=== PATIENT | female | born 1950 | race Hispanic/Latino ===

== ENCOUNTER 2022-01-10 19:46 | Emergency (ER) | payer OTHER, BC ==
--- OUTSIDE RECORDS SUMMARY | 2022-01-10 19:53 | XMS REPORT | Continuity of Care Document ---
:1950 Author Organization [facility] t Address [facility] Aydin Ramirez. [address] [place] [address] Care Team Providers Name Role Phone [phone] Primary Care Physician Unavailable SYSTEM, NOT IN Attending Clinician Unavailable JAREN Attending Clinician Unavailable ROSEMARIE Attending Clinician Unavailable Heath GRANT Attending Clinician Unavailable PROTER Attending Clinician Unavailable MONIKA Attending Clinician Unavailable JOSE Attending Clinician Unavailable XENA Attending Clinician Unavailable BERKLEY Attending Clinician Unavailable ANGUS Attending Clinician Unavailable Preston_Marielena Attending Clinician Unavailable JAY Attending Clinician Unavailable Ave ARTHUR Attending Clinician Unavailable RADIOLOGY Attending Clinician Unavailable Radiology Attending Clinician Unavailable Doctor Unassigned, Name Attending Clinician Unavailable Raju_P Admitting Clinician Unavailable SELBST Admitting Clinician Unavailable Payers Payer Name Policy Type Policy Number Effective Date Expiration Date Heath nobles MEDICARE PART A [id number] 2014 [place] B 00:00:00 [place] [id number] 2015 00:00:00 [place]: [id number] 2014 [employer] 00:00:00 BCBS-ID: KAREN [id number] 2015 [facility] 00:00:00 [facility] [employer] PRO[employer] MEDICARE PART A [id number] 2014 \\T\\ B 00:00:00 BCBS FED [place] [id number] 2004 00:00:00 Problems This patient has no known problems. Allergies, Adverse Reactions, Alerts Allergy Allergy Status Severity Reaction(s) Onset Inactive Treating Comm ents Source Name Type Date Date Clinician Denise Brunson Active Shortness of 2018-0 Because Univers ne ty to Breath 7-05 of IVP ity of Analogue adverse 00:00: dye [place] s reaction 00 ([place] Medic al s nt in Branch drug). AMIODARO Drug Active SOB 0 Univers NE Class 7-05 ity of ANALOGUE 00:00: [place] S 00 Medical Branch Tetanus Propensi Active Rash 0 Univers Vaccines ty to 2-19 ity of And adverse 00:00: [place] Toxoid reaction 00 Medical s Branch Umeclidi Propensi Active Swelling 20180 Tongue Univ ers nium ty to 2-19 swelling ity of adverse 00:00: [place] reaction 00 Medical s Branch UMECLIDI DRUG Active Swelling 0 Univer s NIUM INGREDI 2-19 ity of 00:00: [place] 00 Medical Branch TETANUS Drug Active Low Rash 0 Univers VACCINES Class 2-19 ity of AND 00:00: [place] TOXOID 00 Medical Branch Shellfis Propensi Active Rash 0 Univer s h ty to 9-30 ity of Derived adverse 00:00: [place] reaction 00 Medical s Branch Sulfur Propensi Active Rash 0 Univers ty to 9-30 ity of adverse 00:00: [place] reaction 00 Medical s Branch [place] [address] Univers al ty to Breath 9-30 ity of Sodium adverse 00:00: [place] reaction 00 Medical s Branch Albutero Propensi Active Palpitations 0 Univers l ty to 9-30 ity of adverse 00:00: [place] reaction 00 Medical s Branch Iodinate Propensi Active Rash 0 Univer s d ty to 9-30 ity of Contrast adverse 00:00: [place] Media reaction 00 Medical s Branch OTHER DRUG Active High Rash 20170 Univers OMEGA-3S INGREDI 9-30 ity of 00:00: [place] 00 Medical Branch PROMETHA DRUG Active High Other-Cmnt 20170 Univ ers ZINE INGREDI 9-30 ity of 00:00: [place] 00 Medical Branch THIOPENT DRUG Active High SOB 20170 Univers AL INGREDI 9-30 ity of SODIUM 00:00: [place] 00 Medical Branch ALBUTERO DRUG Active Med Palpitations 0 Un sera L INGREDI 9-30 ity of 00:00: [place] 00 Medical Branch Iodinate Propensi Active Rash 20170 Univer s d ty to 9-30 ity of Contrast adverse 00:00: [place] - Oral reaction 00 Medical And Iv s Branch Dye IODINATE Drug Active Low Rash Univers D Class 9-30 ity of CONTRAST 00:00: [place] MEDIA 00 Medical Branch SHELLFIS DRUG Active Low Rash Univers H INGREDI 930 ity of DERIVED 00:00: [place] 00 Medical Branch SULFUR DRUG Active Low Rash Univers INGREDI 9 ity of 00:00: [place] 00 Medical Branch Other Propensi Active Other - See Other Uni vers [place]-3s ty to comments 07-06 reaction( ity of adverse 00:00: s): Other [place] reaction 00 (See Medical s Comments) Branch 1)"ALL ANTIHISTA MINE: NASAL, ORAL, IV increases my liver enzymes"2 ) Horse Serum: per allergy test: unknown reaction3 ) Old Tetanus Vaccine: unknown reaction1 )"ALL ANTIHISTA MINE: NASAL, ORAL, IV increases my liver enzymes"2 ) Horse Serum: per allergy test: unknown reaction3 ) Old Tetanus Vaccine: unknown reaction Prometha Propensi Active Other - See "IV U nivers zine ty to comments 07-06 phenergan ity o f adverse 00:00: causes [place] reaction 00 seizures" Medic al s Branch Simvasta Propensi Active Other - See U nivers tin ty to comments 04-12 ity of adverse 00:00: [place] reaction 00 Medical s Branch Strawber Propensi Active Rash Univer s ry ty to 04-12 ity of adverse 00:00: [place] reaction 00 Medical s Branch Antihist Propensi Active Rash Univer s amine 12 ty to 7 ity of Hour adverse 00:00: [place] reaction 00 Medical s Branch Celery Propensi Active Rash Univers ty to 7 ity of adverse 00:00: [place] reaction 00 Medical s Branch Diphenhy Propensi Active Other - See U nivers dramine ty to comments 04-12 ity of adverse 00:00: [place] reaction 00 Medical s Branch ANTIHIST DRUG Active Rash Univers AMINE 12 7- ity of HOUR 00:00: [place] 00 Medical Branch CELERY DRUG Active Rash Univers INGREDI 7 ity of 00:00: [place] 00 Medical Branch DIPHENHY DRUG Active Other-Cmnt Univ ers DRAMINE INGREDI 04-12 ity of 00:00: [place] [facility] SIMVASTA DRUG Active Other-Cmnt [facility] ers TIN INGREDI 04-12 ity of 00:00: [place] [address] Medical Branch STRAWBER DRUG Active Low Rash [facility] RY INGREDI 04-12 ity of 00:00: [place] [address] Medical Branch Amiodaro Allergy Active Rash [place] [facility] Iodine Allergy Active Moderate Rash [place] [facility] Phenerga Allergy Active Moderate Vomiting [place] to [facility] SULFA Allergy Active Moderate Rash [place] (SULFONA to da MIDE [facility] Medical ANTIBIOT e Group ICS) Albutero Allergy Active Mild to Bradycardia M [place] l to moderate da substanc Medical e Group Social History Social Habit Start Date Stop Date Quantity Comments Source Sex Assigned At [facility] Branch Alcohol intake 2018-05-21 2018-05-21 [facility] 00:00:00 00:00:00 [facility] Smoking Status Start Date Stop Date Source Never smoker [facility] Medications Ordered Filled Start Stop Current Ordering Indication Dosage Frequency Signature Comments Components Source Medication Medication Date Date Medication? Clinician (SIG) Name Name aspirin 325 Yes 325mg Take 325 U nivers mg tablet 8-16 mg by ity of 00:20: mouth. [address] budesonide Yes .5mg Inhale 0.5 U nivers 0.5 mg/2 mL 8-16 mg. ity of nebulizer 00:20: [address] ipratropium Yes 2.5mL Inhale 2.5 Univers 0.02 % 8-16 mL. ity of nebulizer 00:20: [address] ezetimibe Yes 10mg Take 10 mg Un sera 10 mg 8-16 by mouth. ity of tablet 00:20: [address] omeprazole Yes 20mg Take 20 mg U nivers 20 mg 8-16 by mouth. ity of capsule 00:20: [address] vitamin B-6 Yes 100mg Take 100 U nivers 100 mg 8-16 mg by ity of tablet 00:20: mouth. [address] aspirin 325 2018-0 Yes 325mg Take 325 U nivers mg tablet 8-16 mg by ity of 00:20: mouth. [address] budesonide 2018-0 Yes .5mg Inhale 0.5 U nivers 0.5 mg/2 mL 8-16 mg. ity of nebulizer 00:20: [address] ipratropium 2018-0 Yes 2.5mL Inhale 2.5 Univers 0.02 % 8-16 mL. ity of nebulizer 00:20: [address] ezetimibe 2017-0 Yes 10mg Take 10 mg Un sera 10 mg 8-16 by mouth. ity of tablet 00:20: [address] omeprazole 2017-0 Yes 20mg Take 20 mg U nivers 20 mg 8-16 by mouth. ity of capsule 00:20: [address] vitamin B-6 2017-0 Yes 100mg Take 100 U nivers 100 mg 8-16 mg by ity of tablet 00:20: mouth. [address] aspirin 325 2017-0 Yes 325mg Take 325 U nivers mg tablet 8-16 mg by ity of 00:20: mouth. [address] budesonide 2017-0 Yes .5mg Inhale 0.5 U nivers 0.5 mg/2 mL 8-16 mg. ity of nebulizer 00:20: [address] ipratropium 2017-0 Yes 2.5mL Inhale 2.5 Univers 0.02 % 8-16 mL. ity of nebulizer 00:20: [address] ezetimibe 2017-0 Yes 10mg Take 10 mg Un sera 10 mg 8-16 by mouth. ity of tablet 00:20: [address] omeprazole 2017-0 Yes 20mg Take 20 mg U nivers 20 mg 8-16 by mouth. ity of capsule 00:20: [address] vitamin B-6 2017-0 Yes 100mg Take 100 U nivers 100 mg 8-16 mg by ity of tablet 00:20: mouth. [address] cyclobenzap 2017-0 Yes [id number] 10mg Take 1 Univers rine 10 mg 8-15 [id number] tablet by it y of tablet 00:00: mouth 3 [place] [address] (three) [facility] daily as needed for Muscle Spasms. cyclobenzap Yes [id number] 10mg Take 1 Univers rine 10 mg 8-15 [id number] tablet by it y of tablet 00:00: mouth 3 [place] 00 (three) Medical times Branch daily as needed for Muscle Spasms. cyclobenzap Yes [id number] 10mg Take 1 Univers rine 10 mg 8-15 [id number] tablet by it y of tablet 00:00: mouth 3 [place] 00 (three) Medical times Branch daily as needed for Muscle Spasms. beclomethas 2016-10 Yes Univer s one 0-09 ity of dipropionat 00:00: [place] e (QVAR) 80 00 Medical mcg/actuati Branch on inhaler beclomethas 2016-10 Yes Univer s one 0-09 ity of dipropionat 00:00: [place] e (QVAR) 80 00 Medical mcg/actuati Branch on inhaler beclomethas 2016-10 Yes Univer s one 0-09 ity of dipropionat 00:00: [place] e (QVAR) 80 00 Medical mcg/actuati Branch on inhaler levalbutero Yes USE 1 VIAL Univers l 0.63 mg/3 9-27 EVERY 6 ity o f mL 00:00: HOURS [place] nebulizer 00 NEEDED FOR Medi jennie solution [facility] Branch THERAPY levalbutero Yes USE 1 VIAL Univers l 0.63 mg/3 9-27 EVERY 6 ity o f mL 00:00: HOURS [place] nebulizer 00 NEEDED FOR Medi jennie solution [facility] Branch THERAPY levalbutero Yes USE 1 VIAL Univers l 0.63 mg/3 9-27 EVERY 6 ity o f mL 00:00: HOURS [place] nebulizer 00 NEEDED FOR Medi jennie solution [facility] Branch THERAPY aspirin 325 aspirin 325 No 1 Q1D aspirin [place] mg tablet mg tablet 325 mg da Take 1 Take 1 tablet Medical tablet tablet Take 1 Group every day every day tablet by oral by oral every day route. route. by oral route. Atrovent Atrovent No 2.5mL Q6H Atrovent [place] 0.02 % 0.02 % 0.02 % da solution solution solution Med ical for for for Group inhalation inhalation inhalation Inhale 2.5 Inhale 2.5 Inhale 2.5 mL every 6 mL every 6 mL every 6 hours by hours by hours by inhalation inhalation inhalation route. route. route. Flonase Flonase No Flonase [facility] Lasix 20 mg Lasix 20 mg No 1 Q1D Lasix 20 [place] tablet Take tablet Take mg tablet da 1 tablet 1 tablet Take 1 Medic al every day every day tablet Ange up by oral by oral every day route. route. by oral route. levalbutero levalbutero No 2puff(s Q6H levalbuter [place] HFA 45 l HFA 45 ) ol HFA 45 da mcg/actuati mcg/actuati mcg/actuat Medical on aerosol on aerosol ion Ange up inhaler inhaler aerosol Inhale 2 Inhale 2 inhaler puffs every puffs every Inhale 2 6 hours by 6 hours by puffs inhalation inhalation every 6 route. route. hours by inhalation route. metoprolol metoprolol No metoprolol [place] solorio-hydrochl solorio-hydrochl solorio-hydroch da orothiaz orothiaz lorothiaz Me dical Group Protonix 40 Protonix 40 No 1 Q1D Protonix [place] mg mg 40 mg da tablet,pierre tablet,pierre tablet,del Medical yed release yed release ayed G roup Take 1 Take 1 release tablet tablet Take 1 every day every day tablet by oral by oral every day route. route. by oral route. Pulmicort Pulmicort No 2mL BID Pulmicort [place] 0.25 mg/2 0.25 mg/2 0.25 mg/2 da mL mL mL Medical suspension suspension suspension Group for for for nebulizatio nebulizatio nebulizati n Inhale 2 n Inhale 2 on Inhale mL twice a mL twice a 2 mL twice day by day by a day by nebulizatio nebulizatio nebulizati n route. n route. on route. Qvar Qvar No 2puff(s BID Qvar [place] RediHaler RediHaler ) RediHaler da 40 40 40 Medical mcg/actuati mcg/actuati mcg/actuat Group on HFA on HFA ion HFA breath breath breath activated activated activated aerosol aerosol aerosol Inhale 2 Inhale 2 Inhale 2 puffs twice puffs twice puffs a day by a day by twice a inhalation inhalation day by route. route. inhalation route. Zetia 10 mg Zetia 10 mg No 1 Q1D Zetia 10 [place] tablet Take tablet Take mg tablet da 1 tablet 1 tablet Take 1 Medic al every day every day tablet Ange up by oral by oral every day route. route. by oral route. Vital Signs Vital Name Observation Time Observation Value Comments Source BP Diastolic 2019-07-01 00:00:00 73 mm[Hg] [facility] Height 2019-07-01 00:00:00 64 [in_i] [facility] BMI (Body Mass 2019-07-01 00:00:00 29.5 kg/m2 [facility] Group BP Systolic 2019-07-01 00:00:00 138 mm[Hg] [facility] Body Weight 2019-07-01 00:00:00 171.6 [lb_av] [facility] Height 2018-10-15 00:00:00 64 [in_i] [facility] BMI (Body Mass 2018-10-15 00:00:00 30 kg/m2 [facility] Body Weight 2018-10-15 00:00:00 175 [lb_av] [facility] Procedures Procedure Date / Time Performing Clinician Source Performed XR ANKLE 3+ VW 2019-11-25 21:25:58 [facility] Branch ASSIGNMENT OF BENEFITS 2019-11-25 21:07:35 Doctor Unassigned, No [facility] Name [facility] Branch XR FOOT 3+ VW BILATERAL 2019-05-18 18:58:16 Nahid [facility] Breast [facility] Laminotomy Addl Lumbar [facility] Append[facility] Removal of Gallbladder [facility] Plan of Care Planned Activity Planned Date Details Comments Source Instructions [facility] Encounters Start End Encounter Admission Attending Care Care Encounter Source Date/Time Date/Time Type Type Clinicians Facility Department ID 2021-12-06 Outpatient JASON CHAN MDA [id number] 12:04:40 PROVIDER Duane doan 2021-11-09 Outpatient JASON GOMEZ [id number] 17:40:21 Andjocelyne doan 2021-12-08 2021-12-08 Outpatient LAURA EASTMAN MDA MDA [id number] 10:03:50 23:59:00 RAJ Hernández rso n 2021-12-08 2021-12-08 Outpatient JEANNE SANTORO MDA MDA [id number] 09:09:29 10:38:20 Duane o n 2021-12-08 2021-12-08 Outpatient LAURA GRANT, MDA MDA [id number] 08:45:00 10:02:00 RAJ Edgar rso n 2021-11-24 2021-11-24 Outpatient LAURA BUENROSTRO, MDA MDA [id number] MD 13:53:34 23:59:00 KATHERINE Zepeda o n 2021-11-23 2021-11-23 Outpatient LAURA BUENROSTRO, MDA MDA [id number] 13:08:50 23:59:00 KATHERINE trinidad n 2021-11-23 2021-11-23 Outpatient LAURA BUENROSTRO, MDA MDA [id number] 10:31:00 13:07:00 KATHERINE Zepeda o n 2021-11-23 2021-11-23 Outpatient LAURA FRANK, MDA MDA [id number] 09:33:12 10:09:29 NOHEMY Zepeda o n 2021-11-16 2021-11-16 Outpatient JOSE, MDA MDA [id number] 12:53:07 23:59:00 SID trinidad n 2021-11-16 2021-11-16 Outpatient XENA, MDA MDA [id number] MD 14:04:29 14:04:29 SCOTT flores n 2021-11-16 2021-11-16 Outpatient JOSE, MDA MDA [id number] MD 12:34:34 12:52:00 SID trinidad n 2021 2021 Outpatient MAURIALTON, MDA MDA [id number] 12:51:57 13:09:12 SUSHILA doan 2021-05-18 2021-05-18 Outpatient JOSE, MDA MDA [id number] 13:54:02 23:59:00 SID Zepeda o n 2021-05-18 2021-05-18 Outpatient XENA, MDA MDA [id number] MD 14:52:29 16:29:32 SCOTT doan 2021-05-18 2021-05-18 Outpatient EL JOSE, MDA MDA [id number] MD 14:17:52 14:17:52 SID doan 2021-04-16 2021-04-16 Emergency [place] [id number] [place] 00:00:00 00:00:00 FROYLAN [address] 2020-08-24 2020-08-24 Outpatient Raju_P MMG MMG [id number] [place] 02:19:00 02:19:00 [id number] 2020-08-24 2020-08-24 Outpatient Raju_P MMG MMG [id number] [place] 02:19:00 02:19:00 [facility] 2020-04-18 2020-04-18 Outpatient EL TEREFFE, MDA MDA [id number] 00:00:00 00:00:00 LEI doan 2020-04-15 2020-04-15 Outpatient EL TEREFFE, MDA MDA [id number] MD 00:00:00 00:00:00 LEI doan 2020-04-14 2020-04-14 Outpatient EL TEREFFE, MDA MDA [id number] MD 12:55:07 12:55:07 LEI doan 2020-04-14 2020-04-14 Outpatient EL TEREFFE, MDA MDA [id number] 10:59:52 10:59:52 LEI doan 2020-04-14 2020-04-14 Outpatient EL ARTHUR, MDA MDA [id number] MD 10:41:02 10:54:36 RICK doan 2020-04-11 2020-04-11 Outpatient EL TEREFFE, MDA MDA [id number] 10:00:00 10:00:00 LEI doan 2020-04-07 2020-04-07 Outpatient EL TEREFFE, MDA MDA [id number] MD 00:00:00 00:00:00 LEI doan 2019-11-25 2019-11-25 Outpatient R RADIOLOGY [facility] [id number] Univers 15:11:36 23:59:[facility] 2019-11-25 2019-11-25 [facility] Radiology [facility] [id number] Univers 15:11:00 23:59:00 Encounter Quinton [id number] ity of [place] [id number] [facility] [id number] [facility] [address] 2019-11-25 2019-11-25 Orders Doctor JUSTINE [id number] Univers 00:00:00 00:00:00 Only Unassigned, MELINDA [id number] ity of [place] [facility] 4.2.7.2.686 [place] [facility] [id number] [facility] [address] 2019-07-01 2019-07-01 [facility] [place] [facility] [id number] [place] 00:00:00 00:00:00 MD Preston: [address] [id number] , Ph. 2019-05-18 2019-05-18 [facility] Radiology [facility] [id number] Univers 12:54:38 23:59:00 Encounter [place] [id number] ity of [place] [id number] [facility] [id number] [facility] [address] 2018-10-15 2018-10-15 [facility] [place] - [id number] [place] 00:00:00 00:00:00 MD Preston: [address] [id number] , Ph. Results Test Description Test Time Test Comments Results Result Comments Source CALCIUM, IONIZED 2021-09-24 15:17:25 Test Item Value Reference Range Interpretation Comme nts CALCIUM, IONIZED (test code = 30138) 5.30 MG/DL 4.70-5.90 TSH + FREE T4 [id number] 06:32:50 Test Item Value Reference Range Interpretation Comments TSH, THIRD GENERATION (test code 2.400 UIU/ML 0.400-4.100 = 2821) FREE T4 (THYROXINE) (test code = 1.23 NG/DL 0.80-1.90 2823) PTH, INTACT, WITH CALCIUM, PHOSPHORUS, [id number] 04:38:26 Test Item Value Reference Range Interpretation Comments INTACT PTH (test 36 PG/ML 15-65 code = 5005) CALCIUM (test code 10.0 MG/DL 8.5-10.5 = 2209) PHOSPHORUS (test 3.7 MG/DL 2.5-4.5 code = 2227) CREATININE (test 0.80 MG/DL 0.60-1.30 EFFECTIVE code = 2214) 09/18/2021, [facility] HAS IMPLEMENTED THE [facility]-ASN RECOMME NDED KD-EPI EGF R REFIT CALCULATI ON THAT DOES NOT I NCLUDE A COEFFICIENT FORRACE. FOR MO RE INFORMATION, SE E ANNOUNCEMENT [email or web address] (2020 CKD-EPI) 78 ML/MIN/1.73 >60 (test code = 58463) RENAL FUNCTION PANEL + [id number] 04:38:26 Test Item Value Reference Range Interpretation Comments GLUCOSE (test code 126 MG/DL 70-99 H = 7) BUN (test code = 19 MG/DL 8-23 2207) CREATININE (test 0.80 MG/DL 0.60-1.30 EFFECTIVE code = 2214) 09/18/2021, [facility] HAS IMPLEMENTED THE [employer]-ASN RECOMME NDED KD-EPI EGF R REFIT CALCULATI ON THAT DOES NOT I NCLUDE A COEFFICIENT FORRACE. FOR MO RE INFORMATION, SE E ANNOUNCEMENT [email or web address] eGFR (2020 CKD-EPI) 78 ML/MIN/1.73 >60 (test code = 64131) CALC BUN/CREAT 24 RATIO 6-28 (test code = 2235) SODIUM (test code = 143 MEQ/L 404-695 8242) POTASSIUM (test 4.2 MEQ/L 3.5-5.4 code = 2228) CHLORIDE (test code 105 MEQ/L 95-107 = 2215) CARBON DIOXIDE 27 MEQ/L 19-31 (test code = 2206) CALCIUM (test code 10.0 MG/DL 8.5-10.5 = 2209) PHOSPHORUS (test 3.7 MG/DL 2.5-4.5 code = 2227) ALBUMIN (test code 4.5 G/DL 3.5-5.2 UN LESS = 2201) OTHERWISE INDIC ATED, ALL TESTING PER FORMED ATCLINICAL PATH [facility]Y [facility]ATORIES, I [place]. [address] [place] [address] LABORATORY DIRE CTOR: MEGAN WEAVER M.D. CLIA NUMBER [id number] [facility] ACCREDITATION N O. [id number] XR ANKLE 3+ VW [id number] 21:33:18HISTORY: ?Pain. FINDINGS: AP, lateral, oblique views of right ankle showed no acutefracture or dislocation. No significant ankle joint effusion or aggressivebone lesions seen. Mild degenerative arthritis noted in medial as well aslateral compartment of ankle joint. Retrocalcaneal exostosis noted withinthe lower most portion of the Achilles tendon. CONCLUSIONS: No acute fracture or dislocation in right ankle. [facility], Radiant Results Inft User - 11/25/2019 3:34 PM CSTHISTORY: Pain.FINDINGS: AP, lateral, oblique views of right ankle showed no acutefracture or dislocation. No significant ankle joint effusion or aggressivebone lesions seen. Mild degenerative arthritis noted in medial as well aslateral compartment of ankle joint. Retrocalcaneal exostosis noted withinthe lower most portion of the Achilles tendon.CONCLUSIONS: No acute fracture or dislocation in right ankle.[facility]+ VW [id number] 19:03:14 No acute osseous abnormality. Bilateral first MTP joints osteoarthrosis. EXAM: XR FOOT 3+ VW BILATERAL HISTORY: 68 years-old Female Lesion of left plantar nerve COMPARISON: None. FINDINGS: No?acute fracture or dislocation. A degenerative cyst is noted at the leftgreat toe terminal phalanx at theIP joint. Marginal osteophytosis and subchondral sclerosis affects the bilateralfirst MTP joints, more prominent on the right foot. Bilateral small plantar and prominent posterior calcaneal enthesophytes arenoted.? No soft tissue abnormality is seen. [facility], Radiant Results Inft User - 05/18/2019 2:05 PM CDTEXAM: XR FOOT 3+ VW BILATERALHISTORY: 68 years-old Female Lesion of left plantar nerve COMPARISON: None.FINDINGS:No acute fracture or dislocation. A degenerative cyst is noted at the leftgreat toe terminal phalanx at the IP joint.Marginal osteophytosis and subchondral sclerosis affects the bilat eralfirst MTP joints, more prominent on the right foot.Bilateral small plantar and prominent posterior calcaneal enthesophytes arenoted. No soft tissue abnormality is seen.IMPRESSIONNo acute osseous abnormality.Bilateral first MTP joints osteoarthrosis.[facility]
[2022-01-10] MEDS ORDERED: ONDANSETRON 4 MG/2 ML VIAL ONE (20:49)
[2022-01-10] MEDS ORDERED: FAMOTIDINE 20 MG/2 ML VIAL IV ONE (20:49)
[2022-01-10 21:25] LABS: Urine Blood 1+ (Negative); Urine Glucose Negative (Negative); Urine Protein Negative (Negative); Urine Specific Gravity >=1.030 (1.005-1.030); Urine pH 5.5 (5.0-7.0)
[2022-01-10 21:25] LABS: Absolute Lymphocytes (CBC) 0.5 K/uL (0.7-4.9); Hematocrit 45.9 % (36.0-45.0); Lymphocytes % 4.6 % (15.3-44.8); MPV 7.5 fL (7.6-11.3); RBC Red Blood Cell Count 5.17 M/uL (3.86-4.86)
--- NOTE | 2022-01-10 21:25 | RAD REPORT ---
EXAM DESCRIPTION: RAD - Chest Single View - 01/10/2022 9:09 pm CLINICAL HISTORY: nausea/vomiting Chest pain. COMPARISON: Chest Pa And Lat (2 Views) dated 05/10/2017; CHEST PA AND LAT 2 VIEW dated 11/15/2009 FINDINGS: Portable technique limits examination quality. The lungs are grossly clear. The heart is normal in size. No displaced fractures. IMPRESSION: No acute intrathoracic process suspected.
[2022-01-10 21:26] LABS: Protime INR 0.97
[2022-01-10 22:01] LABS: Urine Bacteria <20 /HPF (<20); Urine Mucus 1+ /HPF (NONE SEEN); Urine RBC <5 /HPF (NONE SEEN)
[2022-01-10 22:41] LABS: Albumin 4.2 g/dL (3.4-5.0); Bilirubin Total 0.5 mg/dL (0.2-1.0); Potassium 3.9 mmol/L (3.5-5.1); Protein, Total 7.8 g/dL (6.4-8.2); Troponin High Sensitivity 4.9 pg/mL (<58.9)
--- NOTE | 2022-01-10 23:12 | RAD REPORT ---
EXAM DESCRIPTION: CTAbdomen Pelvis Wo Contrast - 01/10/2022 11:02 pm CLINICAL HISTORY: ABD PAIN COMPARISON: Abdomen Pelvis Wo Contrast dated 10/28/2018; Abdomen Pelvis Wo Contrast dated 7 TECHNIQUE: CT of the abdomen and pelvis was performed. All CT scans are performed using dose optimization technique as appropriate and may include automated exposure control or mA/KV adjustment according to patient size. FINDINGS: Lower chest: No acute abnormality. Liver: No acute abnormality or suspicious lesions. Biliary: No biliary ductal dilatation. Cholecystectomy . Stomach: No significant focal abnormality. Duodenum: No significant focal abnormality. Pancreas: No significant abnormality. Spleen: No significant abnormality. Adrenal: No suspicious lesions. Kidney/ureter: No hydronephrosis. No renal calculi. Retroperitoneum: No retroperitoneal adenopathy. Vascular: No aneurysm. Bowel: There are several segments of fluid-filled small bowel which is nondilated. There is associate d mesenteric edema.. Diverticulosis without diverticulitis. No appendix identified. Peritoneum: No ascites or free air. Bladder: Grossly unremarkable. Reproductive: No adnexal masses. Retroverted uterus . Bones: No acute fracture. Multilevel degenerative changes are present in the spine. Other: n/a IMPRESSION: Fluid-filled small bowel with associated mesenteric edema concerning for the presence of an enteritis. No bowel obstruction identified.
--- NOTE | 2022-01-11 00:12 | ER ---
Nurse's Notes [facility] Name: Mandy Russo Age: 71 yrs Sex: Female : 1950 Arrival Date: 01/10/2022 Time: 19:49 Bed 17 Private MD: Diagnosis: Nausea with vomiting, unspecified;Diarrhea, unspecified Triage Assessment: 01/10 19:59 General: Appears in no apparent distress. comfortable, Behavior is calm, cooperative, ld1 appropriate for age. Pain: Complains of pain in right upper quadrant Pain does not radiate. Pain currently is 4 out of 10 on a pain scale. at worst was 10 out of 10 on a pain scale. Quality of pain is described as aching, Pain began 4 hours ago. Is intermittent. EENT: No signs and/or symptoms were reported regarding the EENT system. Neuro: Level of Consciousness is awake, alert, obeys commands, Oriented to person, place, time, situation. Respiratory: Airway is patent Respiratory effort is even, unlabored. GI: Abdomen is round non-distended, Reports diarrhea, nausea, vomiting. : No signs and/or symptoms were reported regarding the genitourinary system. Historical: - Allergies: 19:59 Amiodarone; ld1 19:59 ANTIHISTAMINES; ld1 19:59 Tetanus Immune Globulin; ld1 19:59 Pentothal; ld1 19:59 Phenergan; ld1 19:59 Albuterol; ld1 19:59 Incruse Ellipta; ld1 19:59 Iodine; ld1 19:59 SHELLFISH; ld1 19:59 SULFUR, ELEMENTAL; ld1 - PMHx: 19:59 Pancreatitis; TMJ; Asthma; Hypertensive disorder; Atrial fibrillation; ld1 - PSHx: 19:59 Cholecystectomy; Appendectomy; Tubal ligation; Mastoidectomy; ld1 - Immunization history:: Adult Immunizations up to date, Client reports receiving the 2nd dose of the Covid vaccine. - Social history:: Smoking status: Patient denies any tobacco usage or history of. Patient/guardian denies using alcohol. Screenin:45 Abuse screen: Denies threats or abuse. Nutritional screening: No deficits noted. bb Tuberculosis screening: No symptoms or risk factors identified. Fall Risk None identified. Assessment: 20:45 General: Appears in no apparent distress. uncomfortable, Behavior is calm, cooperative. bb Pain: Complains of pain in abdomen. Neuro: Level of Consciousness is awake, alert, obeys commands, Oriented to person, place, time, situation. Cardiovascular: Capillary refill < 3 seconds Patient's skin is warm and dry. Respiratory: Respiratory effort is even, unlabored, Respiratory pattern is regular. GI: Abdomen is round Reports nausea, vomiting. Derm: Skin is pink, warm \T\ dry. Musculoskeletal: Circulation, motion, and sensation intact. 21:57 Reassessment: Patient is alert, oriented x 3, equal unlabored respirations, skin bb warm/dry/pink. pt awaiting diagnostic results, family at bedside. 22:38 Reassessment: Patient is alert, oriented x 3, equal unlabored respirations, skin bb warm/dry/pink. pt resting quietly awaiting CT results. 01/11 00:31 Reassessment: Patient is alert, oriented x 3, equal unlabored respirations, skin bb warm/dry/pink. pt drank gatorade and ate some crackers without vomiting pt verbalized understanding of and agrees to plan of care discharge instructions given pt assisted to exit via wheelchair by this RN accompanied by family Patient states feeling better. Vital Signs: 01/10 19:59 BP 158 / 73; Pulse 101; Resp 18; Temp 98.7(TE); Pulse Ox 98% on R/A; Weight 72.57 kg; ld1 Height 5 ft. 3 in. (160.02 cm); Pain 4/10; 21:57 BP 140 / 62; Pulse 80; Resp 16 S; Pulse Ox 98% on R/A; bb 01/11 00:33 BP 142 / 64; Pulse 86; Resp 16 S; Temp 97.2(O); Pulse Ox 99% on R/A; bb 01/10 19:59 Body Mass Index 28.34 (72.57 kg, 160.02 cm) ld1 ED Course: 01/10 19:49 Patient arrived in ED. kz 19:59 Arm band placed on left wrist. ld1 20:04 Tramaine Eid PA is PHCP. cp 20:04 Tramaine Hernandez MD is Attending Physician. cp 20:30 Sharonda Love, CECI is Primary Nurse. bb 20:45 Patient has correct armband on for positive identification. Bed in low position. Call bb light in reach. Side rails up X 1. Adult w/ patient. Pulse ox on. NIBP on. 20:50 Initial lab(s) drawn, by me, sent to lab. Inserted saline lock: 20 gauge in left bb antecubital area, using aseptic technique. Blood collected. 21:11 XRAY Chest (1 view) In Process Unspecified. EDMS 23:04 CT Abd/Pelvis - Without Contrast In Process Unspecified. EDMS 01/11 00:33 No provider procedures requiring assistance completed. IV discontinued, intact, bb bleeding controlled, No redness/swelling at site. Pressure dressing applied. Administered Medications: 01/10 20:55 Drug: Pepcid (famotidine) 20 mg Route: IVP; Site: left antecubital; bb 22:38 Follow up: Response: No adverse reaction bb 20:57 Drug: Zofran (Ondansetron) 4 mg Route: IVP; Site: left antecubital; bb 22:38 Follow up: Response: No adverse reaction bb Outcome: 01/11 00:11 Discharge ordered by MD. cp 00:34 Discharged to home via wheelchair, with family. bb 00:34 Condition: stable 00:34 Discharge instructions given to patient, Instructed on discharge instructions, follow up and referral plans. medication usage, Demonstrated understanding of instructions, follow-up care, medications, Prescriptions given X 1. 00:34 Patient left the ED. bb Signatures: Dispatcher [employer] Sharonda Ramsey RN RN bb Page, Corey, PA PA cp Dibbern, Lauren, RN RN ld1 Yvonne Mo
--- NOTE | 2022-01-11 00:12 | EDPHYS ---
Physician Documentation [facility] Name: Mandy Russo Age: 71 yrs Sex: Female : 1950 Arrival Date: 01/10/2022 Time: 19:49 Bed 17 Private MD: JOSE Physician Tramaine Hernandez HPI: 01/10 20:04 This 71 yrs old Female presents to ER via Unassigned with complaints of cp Nausea/Vomiting/Diarrhea, Abdominal Pain. 20:04 The patient presents with abdominal pain in the right upper quadrant. Onset: The cp symptoms/episode began/occurred yesterday. Associated signs and symptoms: Pertinent positives: diarrhea, nausea, vomiting, dizziness, Pertinent negatives: blood in stools, vomiting blood. The symptoms are described as constant. Historical: - Allergies: 19:59 Amiodarone; ld1 19:59 ANTIHISTAMINES; ld1 19:59 Tetanus Immune Globulin; ld1 19:59 Pentothal; ld1 19:59 Phenergan; ld1 19:59 Albuterol; ld1 19:59 Incruse Ellipta; ld1 19:59 Iodine; ld1 19:59 SHELLFISH; ld1 19:59 SULFUR, ELEMENTAL; ld1 - PMHx: 19:59 Pancreatitis; TMJ; Asthma; Hypertensive disorder; Atrial fibrillation; ld1 - PSHx: 19:59 Cholecystectomy; Appendectomy; Tubal ligation; Mastoidectomy; ld1 - Immunization history:: Adult Immunizations up to date, Client reports receiving the 2nd dose of the Covid vaccine. - Social history:: Smoking status: Patient denies any tobacco usage or history of. Patient/guardian denies using alcohol. ROS: 20:10 Constitutional: Negative for body aches, chills, fever. cp 20:10 Eyes: Negative for injury, pain, redness, and discharge. cp 20:10 ENT: Negative for drainage from ear(s), ear pain, sore throat, difficulty swallowing, difficulty handling secretions. 20:10 Cardiovascular: Negative for chest pain, palpitations. 20:10 Respiratory: Negative for cough, shortness of breath, wheezing. 20:10 Abdomen/GI: Positive for abdominal pain, nausea, vomiting, diarrhea, of the right upper quadrant, Negative for constipation, hematemesis, black/tarry stool, rectal bleeding. 20:10 : Negative for urinary symptoms. 20:10 Neuro: Positive for dizziness, Negative for altered mental status, headache, weakness. 20:10 All other systems are negative. Exam: 20:15 Constitutional: The patient appears in no acute distress, alert, awake, cp non-diaphoretic, non-toxic, well developed, well nourished, uncomfortable. 20:15 Head/Face: Normocephalic, atraumatic. cp 20:15 Eyes: Periorbital structures: appear normal, Conjunctiva: normal, no exudate, no injection, Sclera: no appreciated abnormality, Lids and lashes: appear normal, bilaterally. 20:15 ENT: External ear(s): are unremarkable, Nose: is normal, Mouth: Lips: moist, Oral mucosa: moist, Posterior pharynx: Airway: no evidence of obstruction, patent. 20:15 Neck: ROM/movement: is normal, is supple, without pain, no range of motions limitations. 20:15 Chest/axilla: Inspection: normal, Palpation: is normal, no crepitus, no tenderness. 20:15 Cardiovascular: Rate: tachycardic, Rhythm: regular, Edema: is not appreciated, JVD: is not appreciated. 20:15 Respiratory: the patient does not display signs of respiratory distress, Respirations: normal, no use of accessory muscles, no retractions, labored breathing, is not present, Breath sounds: are clear throughout, no decreased breath sounds, no stridor, no wheezing. 20:15 Abdomen/GI: Inspection: abdomen appears normal, Bowel sounds: active, all quadrants, Palpation: soft, in all quadrants, moderate abdominal tenderness, in the right upper quadrant, rebound tenderness, is not appreciated, involuntary guarding, is not appreciated. 20:15 Back: CVA tenderness, is absent. 20:15 Neuro: Orientation: to person, place \T\ time. Mentation: is normal, Cerebellar function: is grossly normal, Motor: moves all fours, strength is normal, Sensation: is normal. 23:00 ECG was reviewed by the Attending Physician. cp Vital Signs: 19:59 BP 158 / 73; Pulse 101; Resp 18; Temp 98.7(TE); Pulse Ox 98% on R/A; Weight 72.57 kg; ld1 Height 5 ft. 3 in. (160.02 cm); Pain 4/10; 21:57 BP 140 / 62; Pulse 80; Resp 16 S; Pulse Ox 98% on R/A; bb 01/11 00:33 BP 142 / 64; Pulse 86; Resp 16 S; Temp 97.2(O); Pulse Ox 99% on R/A; bb 01/10 19:59 Body Mass Index 28.34 (72.57 kg, 160.02 cm) ld1 MDM: 01/10 20:27 Patient medically screened. [facility] 01/11 00:10 Data reviewed: vital signs, nurses notes, lab test result(s), radiologic studies, CT cp scan, plain films. 00:10 Differential diagnosis: gastritis, non-specific abd pain, pancreatitis, Pyelonephritis, cp Ureterolithiasis, urinary tract infection. Test interpretation: by ED physician or midlevel provider: ECG, plain radiologic studies. Counseling: I had a detailed discussion with the patient and/or guardian regarding: the historical points, exam findings, and any diagnostic results supporting the discharge/admit diagnosis, lab results, radiology results, to return to the emergency department if symptoms worsen or persist or if there are any questions or concerns that arise at home. Response to treatment: the patient's symptoms have markedly improved after treatment, VSS. Nausea and pain markedly improved, vomiting resolved. Will discharge to home for continued monitoring. 01/10 20:39 Order name: CBC with Diff; Complete Time: 21:50 cp 01/10 21:51 Interpretation: Normal except: WBC 11.5; RBC 5.17; HGB 15.4; HCT 45.9; MPV 7.5; HERBERTH% cp 92.0; LYM% 4.6; MN% 2.9; NEUT A 10.6; LYMA 0.5. 01/10 20:39 Order name: CMP; Complete Time: 22:41 cp 01/10 22:42 Interpretation: Normal except: GLUC 141; BUN 27; GFR 60; GLOB 3.6. cp 01/10 20:39 Order name: Lipase; Complete Time: 22:41 cp 01/10 20:39 Order name: Urine Microscopic Only; Complete Time: 22:22 cp 01/10 22:22 Interpretation: Reviewed. 01/10 20:39 Order name: PT-INR; Complete Time: 21:50 cp 01/10 20:39 Order name: Troponin High Sensitivity; Complete Time: 22:41 cp 01/10 20:39 Order name: IV Saline Lock; Complete Time: 21:12 cp 01/10 20:39 Order name: Labs collected and sent; Complete Time: 21:12 cp 01/10 20:39 Order name: EKG; Complete Time: 20:40 cp 01/10 20:39 Order name: XRAY Chest (1 view); Complete Time: 21:50 cp 01/10 21:25 Order name: Urine Dipstick-Ancillary; Complete Time: 21:50 EDMS 01/10 21:51 Interpretation: Normal except: UKET 1+; UBLD 1+. cp 01/10 21:52 Order name: CT Abd/Pelvis - Without Contrast; Complete Time: 23:23 cp 01/10 20:39 Order name: Urine Dipstick-Ancillary (obtain specimen); Complete Time: 21:12 cp 01/10 23:24 Order name: PO challenge; Complete Time: 00:33 cp EC/06 23:00 Rate is 78 beats/min. Rhythm is regular. IN interval is normal. QRS interval is normal. cp QT interval is normal. Interpreted by me. Reviewed by me. Administered Medications: 20:55 Drug: Pepcid (famotidine) 20 mg Route: IVP; Site: left antecubital; bb 22:38 Follow up: Response: No adverse reaction bb 20:57 Drug: Zofran (Ondansetron) 4 mg Route: IVP; Site: left antecubital; bb 22:38 Follow up: Response: No adverse reaction bb Disposition: 01/11 07:14 Co-signature as Attending Physician, Tramaine Hernandez MD I agree with the assessment and britta plan of care. Disposition Summary: 01/11/22 00:11 Discharge Ordered Location: Home cp Problem: new cp Symptoms: have improved cp Condition: Stable cp Diagnosis - Nausea with vomiting, unspecified cp - Diarrhea, unspecified cp Followup: cp - With: Private Physician - When: 1 - 2 days - Reason: Recheck today's complaints Discharge Instructions: - Discharge Summary Sheet cp - Food Choices to Help Relieve Diarrhea, Adult cp - Diarrhea, Adult cp - Nausea and Vomiting, Adult cp Forms: - Medication Reconciliation Form cp - Thank You Letter cp - Antibiotic Education cp - Prescription Opioid Use cp Prescriptions: - Zofran 4 mg Oral Tablet - take 1 tablet by ORAL route every 12 hours As needed; 20 tablet; Refills: 0, cp Product Selection Permitted Signatures: Dispatcher [employer] EDTramaine Morton MD MD cha Ballard, Brenda, RN RN Tramaine Shelton PA PA cp Dibbern, Lauren, RN RN ld1 Corrections: (The following items were deleted from the chart) 22:47 07:15 Data reviewed: vital signs, nurses notes, britta mo
[2022-01-11 09:49] VITALS: BP 142/64; TEMP 97.2; O2SAT 99
== END 2022-01-11 00:34 | disposition home or self-care (01) ==
LOC: ER 19:46
DX: R11.2 Nausea with vomiting, unspecified (principal); R19.7 Diarrhea, unspecified; R10.11 Right upper quadrant pain; I10 Essential (primary) hypertension; Z88.7 Allergy status to serum and vaccine; Z88.8 Allergy status to other drugs, medicaments and biological substances; Z91.013 Allergy to seafood; Z91.048 Other nonmedicinal substance allergy status
CPT/HCPCS: 93005; 85025; 36415; 85610; 84484; 83690; 80053; 74176; 71045; 96375; 96374; 99284; J2405; 81003; 81015